=== PATIENT | male | born 1975 | race Caucasian/White ===

== ENCOUNTER → 2016-03-22 | Outpatient (REF) | payer BC ==
[~2016-03-22] MED LIST: ASPI1TAB PO; FOLI1TAB2 PO; MULT1TAB10 PO; OMEP20CA3 PO; vitamin B OR
== END | disposition home or self-care (01) ==
LOC: M SMT 08:30
PROVIDERS: ATTEND Urology
DX: Z30.2 Encounter for sterilization (principal)

== ENCOUNTER → 2016-05-20 | Outpatient (CLI) | payer BC ==
--- NOTE | 2016-05-23 06:18 | SLEEPCENT ---
DATE OF PROCEDURE: 05/20/2016 ORDERED BY: NATY Coles Nocturnal polysomnography was performed for the titration of pressure therapy in this patient with obstructive sleep apnea syndrome confirmed by home testing revealing a respiratory event index of 18. For testing, a [place] and APSX Simplus full face mask of small size was used. 4 cm of water pressure were applied to the circuit and the lights were extinguished. 8 hours and 29 minutes of data were reviewed. There were 453 minutes of sleep identified. Sleep latency was prolonged at 33 minutes. Rapid eye movement (REM) latency was normal at 82 minutes. Sleep architecture was good with 4 REM periods appreciated. Overall sleep efficiency was 90%. The patient's electrocardiogram (EKG) showed a sinus rhythm with an average heart rate of 60 beats per minute. Electroencephalogram (EEG) showed reasonably normal waveforms for awake and sleep. Best pressure for achievement of optimal sleep was 6 cm of continuous positive airway pressure (CPAP) with which the patient slept through REM without respiratory event and oxygen desaturation. Remaining measures of sleep physiology were normal. IMPRESSION: Obstructive sleep apnea syndrome (G47.33). RECOMMENDATION: Nightly use of pressure therapy 6 cm of water.
== END ==
LOC: M SLEEP 19:50
PROVIDERS: ATTEND Nurse Practitioner Adult Health
DX: G47.33 Obstructive sleep apnea (adult) (pediatric) (principal)

== ENCOUNTER 2018-12-23 15:45 | Outpatient (RCR) | payer BC ==
[~2018-12-23 15:45] MED LIST changes: -ASPI1TAB PO; +ASPI81TA26 PO; +FOLI1TAB11 PO; -FOLI1TAB2 PO; -OMEP20CA3 PO; +OMEP20CA4 PO
== END 2019-01-02 ==
LOC: M PT 15:45
PROVIDERS: ATTEND Otolaryngology
DX: M26.609 Unspecified temporomandibular joint disorder, unspecified side (principal)

== ENCOUNTER 2019-07-31 13:53 | Observation (INO) | payer BC ==
[~2019-07-31] VITALS: Ht 177.8 cm; Wt 166.3 kg
[~2019-07-31 13:53] MED LIST changes: +OMEP1CAP73 PO; -OMEP20CA4 PO
--- NOTE | 2019-07-31 14:34 | REP ---
Head CT without contrast: History: Neurologic symptoms. Comparison study: No comparison study. CT findings: Bone window settings demonstrate an intact bony calvarium. There is no evidence of skull fracture or incidental bony calvarial lesion. The visualized paranasal sinuses appear clear. No intraorbital abnormality is seen. On soft tissue window setting images; the lateral, third, and fourth ventricles are normal in size and position. Young-white differentiation pattern is normal above and below the tentorium. There are is no evidence of intracranial hemorrhage. No mass, edema, infarction, or midline shift is seen. No extra-axial fluid collection is appreciated. Impression: Negative noncontrast head CT. Electronically Signed by Kj Bunn MD 07/31/2019 02:24 P
[2019-07-31 15:30] LABS: BASO # 0.1 10^3/uL (0.0-0.2); EOS # 0.2 10^3/uL (0.0-0.5); EOS % 2.2 % (0.0-3.0); HEMATOCRIT 41.8 % (42.0-52.0); LYMPH # 1.9 10^3/uL (1.5-5.0); LYMPH % 27.1 % (24.0-44.0); MEAN CORPUSCULAR HEMOGLOBIN 24.6 pg (27.0-33.0); MEAN CORPUSCULAR HGB CONC 31.1 g/dl (32.0-36.5); MEAN CORPUSCULAR VOLUME 79.2 fl (80.0-96.0); MONO # 0.6 10^3/uL (0.0-0.8); NEUTROPHILS # 4.3 10^3/uL (1.5-8.5); PLATELET COUNT, AUTOMATED 329 10^3/uL (150-450); RED BLOOD COUNT 5.28 10^6/uL (4.30-6.10); WHITE BLOOD COUNT 7.1 10^3/uL (4.0-10.0)
[2019-07-31 15:33] LABS: INR 1.08; PROTHROMBIN TIME 13.7 SECONDS (11.8-14.0)
[2019-07-31 15:34] LABS: PARTIAL THROMBOPLASTIN TIME 35.4 SECONDS (25.0-38.4)
[2019-07-31 15:39] LABS: ALBUMIN 3.8 GM/DL (3.2-5.2); ALT/SGPT 20 U/L (12-78); BILIRUBIN,DIRECT 0.1 MG/DL (0.0-0.2); BILIRUBIN,TOTAL 0.4 MG/DL (0.2-1.0); CK-MB VALUE MASS < 1.0 NG/ML (<3.6); CPK CREATINE PHOSPHOKINASE 263 U/L (39-308); MB/CK RELATIVE INDEX 0.38 (< OR =4); TOTAL PROTEIN 7.1 GM/DL (6.4-8.2); TROPONIN I < 0.02 NG/ML (< 0.10)
[2019-07-31] MEDS ORDERED: IBUP200C29 PO (15:42)
[2019-07-31] MEDS ORDERED: OMEP1CAP73 PO (15:42)
--- NOTE | 2019-07-31 15:43 | REP ---
CHEST SINGLE VIEW: There is no evidence of acute infiltrate. No pleural effusion is seen. The heart is normal in size. The mediastinal silhouette is unremarkable. The visualized osseous structures are intact. IMPRESSION: No acute pulmonary disease. Electronically Signed by Clive Young MD 07/31/2019 05:06 P
[2019-07-31] MEDS ORDERED: ASPIRIN 325 MG TAB PO ONE (15:45)
[2019-07-31] MEDS ORDERED: ACETAMINOPHEN TAB 650MG DOSE (2X325MG) PO PRN (17:15)
--- NOTE | 2019-07-31 17:43 | HPEPDOC ---
[facility] Medical History & Physical Date of Admission July 31, 2019 Date of Service: July 31, 2019 Primary Care Physician: BLACK SCHAEFFER DO Attending Physician: LISA TORRES MD History and Physical CHIEF COMPLAINT: slurred speech and R-sided weakness HISTORY OF PRESENT ILLNESS: Charlie Mathews is a 44 YO M with history of hypertension, EUGENIO who presents with symptoms of slurred speech, upper extremity weakness that started 30 minutes prior to presentation to the ED. The patient reports waking up feeling fine this morning. He went to work and was on a conference call and his coworker noticed that he was having slurred speech. He then had another coworker friend who used to be an EMT do a neurologic exam on him, and his friend was concerned about upper extremity weakness. The patient did not notice any weakness prior to that. He was not having any trouble walking and had a friend drive him to the ED. The patient then reported to the ED and on presentation his speech was found to be normal. He does notice some residual numbness of his right cheek, but the weakness in his right upper extremity has resolved. He is unsure whether the sensation is intact in his right upper extremity compared to his left. He denies any recent illnesses. He has never had any strokes or TIAs, but does report a significant family history for GA in his father, younger brother, and grandfather resulting in at very young ages. In the ED, the patient underwent teleconsult with Dr. Mckeon for CVA evaluation. His CT head was found to be negative. The patient refused TPA. Of note, the patient does have a large bruise on his left upper extremity extending from his wrist to his elbow which he sustained playing golf. PAST MEDICAL HISTORY: 1. Hypertension, not on medications 2. GERD 3. Hx Kidney stones 4. EUGENIO (does not use CPAP) PAST SURGICAL HISTORY: 1. Gastric Sleeve, 2016 2. R arm surgery 3. Vasectomy SOCIAL HISTORY: Non-smoker, denies EtOH or other drugs FAMILY HISTORY: Grandfather had several MIs and passed at age of 58, Father at age of 56 from GA, Younger brother had GA at age of 30 No family history of strokes ALLERGIES: Please see below. REVIEW OF SYSTEMS: CONSTITUTIONAL: Denies weight loss, weight gain, fevers, chills, or night sweats EYES: Denies visual changes, double vision, blurry vision, floaters, or feeling like a curtain pulled down. ENT: Denies runny nose, epistaxis, sinus pain, tinnitus, sore throat, or odynophasia CARDIOVASCULAR: Denies chest pain, shortness of breath, paroxysmal nocturnal dyspnea, orthopnea, edema, or palpitations. RESPIRATORY: Denies cough, sputum production, wheezes, hemoptysis, or shortness of breath GASTROINTESTINAL: Denies abdominal pain, difficulty swallowing, loss of appetite GENITOURINARY: Denies hematuria, polyuria, dysuria, hesitancy, or dribbling MSK: Denies joint swelling, decreased range of motion, crepitus, or new arthritis INTEGUMENTARY: Denies pruritus, rashes, or lesions NEUROLOGY: Reports loss of sensation over right cheek PSYCHIATRIC: Denies depression, anxiety, paranoia, anhedonia, or episodes of ministerio ENDOCRINE: Denies diarrhea, increased appetite, tremor, palpitations, c onstipation, dry skin, polydipsia, polyuria, polyphagia HEMATOLOGIC: Denies any anemia, purpura, or petechiae LYMPHATIC: Denies any new lumps or bumps anywhere HOME MEDICATIONS: Please see below. PHYSICAL EXAMINATION: VITAL SIGNS: Please see below. GENERAL APPEARANCE: Morbidly obese, pleasant, Laying in bed, appears stated age, no acute distress, calm, cooperative HEENT: EOMI, PERRLA, neck is supple with no thyromegaly or lymphadenopathy RESPIRATORY: Lungs are clear to auscultation bilaterally with no adventitious breath sounds appreciated CARDIOVASCULAR: no JVD, RRR, no murmurs/rubs/gallops, normal S1 and S2 ABDOMEN: +BS, soft, nontender to palpation in all four quadrants, no masses/orga nomegaly EXTREMITIES: There is a large extensive bruise over the left upper extremity on the anterior surface extending from the wrist to the elbow NEUROLOGICAL: CN 2-12 intact, there is loss of sensation over the V2 distribution of the facial nerve on the right. Strength 5 out of 5 in bilateral upper and lower extremities. Reflexes are 3+. Sensation intact over both upper and lower extremities PSYCHIATRIC: normal mood/affect Skin: No rashes or ulcers appreciated, warm and well-perfused LN: No significant cervical or inguinal lymphadenopathy LABORATORY DATA: See below. IMAGING: CHEST SINGLE VIEW: There is no evidence of acute infiltrate. No pleural effusion is seen. The heart is normal in size. The mediastinal silhouette is unremarkable. The visualized osseous structures are intact. IMPRESSION: No acute pulmonary disease. HEAD CT: History: Neurologic symptoms. Comparison study: No comparison study. CT findings: Bone window settings demonstrate an intact bony calvarium. There is no evidence of skull fracture or incidental bony calvarial lesion. The visualized paranasal sinuses appear clear. No intraorbital abnormality is seen. On soft tissue window setting images; the lateral, third, and fourth ventricles are normal in size and position. Young-white differentiation pattern is normal above and below the tentorium. There are is no evidence of intracranial hemorrhage. No mass, edema, infarction, or midline shift is seen. No extra-axial fluid collection is appreciated. Impression: Negative noncontrast head CT. MICROBIOLOGY: Please see below. ASSESSMENT: This is a 44-year-old male with history of hypertension, EUGENIO, obesity who presented with right-sided paresthesias and speech difficulty, found to have normal head CT, concerning for acute TIA versus CVA. He will be admitted for further workup at this time. PLAN: 1. TIA: -All labs WNL -Head CT negative for hemorrhage -Echo with bubble study pending -MRI/MRA ordered -ASA 325mg given in ED -Atorvastatin 40mg daily -Lipids, A1c pending -Remote telemetry 2. Left upper extremity swelling: -Doppler US to r/o DVT 3. Anemia: -Iron studies pending 4. HTN: 171/88 -Will recheck and start Losartan if needed PT evaluation ordered DVT ppx: Heparin Attending attestation: I evaluated and examined the patient in person; I discussed the care with Resident in detail and agree with the plan above. Vital Signs Vital Signs Date Time Temp Pulse Resp B/P (MAP) Pulse Ox O2 Delivery O2 Flow Rate FiO2 07/31/19 15:53 75 18 96 07/31/19 15:50 171/88 (115) 07/31/19 13:53 97.7 Room Air Laboratory Data Labs 24H Laboratory Tests 2 07/31/19 14:09: Bedside Glucose (Misc Panel) 80 07/31/19 14:35: Immature Granulocyte % (Auto) 0.7, Neutrophils (%) (Auto) 60.0, Lymphocytes (%) (Auto) 27.1, Monocytes (%) (Auto) 9.0H, Eosinophils (%) (Auto) 2.2, Basophils (%) (Auto) 1.0, Neutrophils # (Auto) 4.3, Lymphocytes # (Auto) 1.9, Monocytes # (Auto) 0.6, Eosinophils # (Auto) 0.2, Basophils # (Auto) 0.1, Nucleated Red Blood Cells % (auto) 0.0, Prothrombin Time 13.7, Prothromb Time International Ratio 1.08, Activated Partial Thromboplast Time 35.4, Total Bilirubin 0.4, Direct Bilirubin 0.1, Aspartate Amino Transf (AST/SGOT) 11, Alanine Aminotransferase (ALT/SGPT) 20, Alkaline Phosphatase 111, Total Creatine Kinase 263, Creatine Kinase MB < 1.0, Creatine Kinase MB Relative Index 0.38, Troponin I < 0.02, Total Protein 7.1, Albumin 3.8, Albumin/Globulin Ratio 1.2 07/31/19 14:58: POC Glucose (Misc Panel) 93, POC Sodium (Misc Panel) 141, POC Potassium (Misc Panel) 3.9, POC Chloride (Misc Panel) 103, POC Total CO2 (Misc Panel) 25.0, POC Blood Urea Nitrogen (Misc Panel 12, POC Ionized Calcium (Misc Panel) 4.9, POC Creatinine (Misc Panel) 1.1, POC Hematocrit (Misc Panel) 41.0 CBC/BMP Laboratory Tests 07/31/19 14:35 Home Medications Scheduled Aspirin (Ecotrin) 81 Mg Tablet.dr, 1 TAB PO DAILY for pain Omeprazole (Omeprazole) 20 Mg Cap, 20 MG PO DAILY Scheduled PRN Ibuprofen (Ibuprofen) 200 Mg Capsule, 800 MG PO TID PRN for PAIN Omeprazole (Omeprazole) 20 Mg Capsule.dr, 20 MG PO DAILY PRN for HEARTBURN Allergies Coded Allergies: No Known Allergies (Unverified , 02/08/16) A-FIB/CHADSVASC A-FIB History Current/History of A-Fib/PAF?: No Current PO Anticoag Therapy: No GME ATTESTATION GME ATTESTATION My faculty preceptor for this patient encounter was physically present during the encounter and was fully available. All aspects of the patient interview, examination, medical decision making process, and medical care plan development were reviewed and approved by the faculty preceptor. The faculty preceptor is aware and concurs with the plan as stated in the body of this note and will attest to such by his/her cosignature. REI MOREAU MD July 31, 2019 17:43 LISA TORRES MD Aug 06, 2019 20:54
[2019-07-31 18:33] LABS: INR 1.14; PROTHROMBIN TIME 14.3 SECONDS (11.8-14.0)
[2019-07-31 18:36] LABS: HEMOGLOBIN A1c 5.9 %
[2019-07-31 18:49] LABS: CHOLESTEROL RISK RATIO 3.976 (<5); PERCENT SATURATION 10.2 % (19.7-50.0)
--- NOTE | 2019-07-31 21:03 | REPVR ---
PROCEDURE INFORMATION: Exam: MR Angiography Neck Without Contrast Exam date and time: 07/31/2019 8:55 PM Age: 44 years old Clinical indication: Other: TIA; Additional info: CVA TECHNIQUE: Imaging protocol: Magnetic resonance angiography of the neck without contrast. 3D rendering: MIP and/or 3D reconstructed images were created by the technologist. COMPARISON: No relevant prior studies available. FINDINGS: Right common carotid artery: No stenosis. No dissection or occlusion. Right internal carotid artery: No stenosis of the extracranial segment. No dissection or occlusion. Right external carotid artery: No stenosis. No dissection or occlusion of the origin. Right vertebral artery: Vertebral artery above the C1 level is not visualized. Left common carotid artery: No stenosis. No dissection or occlusion. Left internal carotid artery: No stenosis of the extracranial segment. No dissection or occlusion. Left external carotid artery: No stenosis. No dissection or occlusion of the origin. Left vertebral artery: Left vertebral artery is small. The proximal left vertebral artery is patent. IMPRESSION: 1. Left vertebral artery is hypoplastic. The V3 and V4 segments are not visualized. 2. Otherwise unremarkable MRA. No other significant stenosis, aneurysm, or vascular occlusion. REFERENCES: NASCET CRITERIA. The degree of internal carotid artery stenosis is based on NASCET criteria. Normal is no stenosis. Mild is less than 50% stenosis. Moderate is 50-69% stenosis. Severe is 70% to 99% stenosis. Total occlusion is no detectable patent lumen. Electronically signed by: Osman Davison On 07/31/2019 21:03:42 PM
--- NOTE | 2019-07-31 21:07 | REPVR ---
PROCEDURE INFORMATION: Exam: MR Angiogram Head Without Contrast, Arteries Exam date and time: 07/31/2019 8:55 PM Age: 44 years old Clinical indication: Other: TIA; Additional info: CVA TECHNIQUE: Imaging protocol: MR angiogram head without contrast. Exam focused on the arteries. 3D rendering: MIP and/or 3D reconstructed images were created by the technologist. COMPARISON: CT Head without contrast 07/31/2019 2:09 PM FINDINGS: Anterior cerebral arteries: Intracranial segment is patent with no significant stenosis. No aneurysm. Right internal carotid artery: Intracranial segment is patent with no significant stenosis. No aneurysm. Right middle cerebral artery: No occlusion or significant stenosis. No aneurysm. Right posterior cerebral artery: No occlusion or significant stenosis. No aneurysm. Right vertebral artery: No occlusion or significant stenosis. No aneurysm. Left internal carotid artery: Intracranial segment is patent with no significant stenosis. No aneurysm. Left middle cerebral artery: The proximal left V4 segment is not well visualized. Left posterior cerebral artery: Flow is present in the distal left V4 segment. Left vertebral artery: No occlusion or significant stenosis. No aneurysm. Basilar artery: No occlusion or significant stenosis. No aneurysm. IMPRESSION: 1. No flow in the hypoplastic proximal left vertebral artery. Some flow is present distally. 2. Otherwise unremarkable MRA. No other significant stenosis, aneurysm, or vascular occlusion. Electronically signed by: Osman Davison On 07/31/2019 21:07:12 PM
--- NOTE | 2019-07-31 21:10 | REPVR ---
PROCEDURE INFORMATION: Exam: MR Head Without Contrast Exam date and time: 07/31/2019 8:55 PM Age: 44 years old Clinical indication: Other: TIA; Additional info: CVA TECHNIQUE: Imaging protocol: MR of the head without contrast. COMPARISON: CT Head without contrast 07/31/2019 2:09 PM FINDINGS: Brain: Normal. No acute infarct. No hemorrhage. No significant white matter disease. No edema. Ventricles: Normal. No ventriculomegaly. Bones/joints: Unremarkable. Sinuses: Normal as visualized. No acute sinusitis. Mastoid air cells: Normal as visualized. No mastoid effusion. Orbits: Unremarkable. Soft tissues: Unremarkable. IMPRESSION: No acute findings. Electronically signed by: Osman Davison On 07/31/2019 21:10:03 PM
--- NOTE | 2019-07-31 21:11 | ECGEPIP ---
[facility] - ED Test Date: 2019-07-31 Pat Name: CHRIS BOURNE Department: Room: - Gender: Male Quality Coordinator: : 1975 Requested By: SILVERIO Durant Order Number: [id number] Reading MD: Bryn Stratton Measurements Intervals [place] Rate: 67 P: 1 OR: 144 QRS: 11 QRSD: 101 T: 12 QT: 399 QTc: 424 Interpretive Statements SINUS RHYTHM POSSIBLE INFERIOR MYOCARDIAL INFARCTION, PROBABLY OLD NO PRIORS FOR COMPARISON Electronically Signed on 07-31-2019 21:11:24 EDT by Bryn Stratton
--- NOTE | 2019-07-31 21:15 | REPVR ---
PROCEDURE INFORMATION: Exam: US Duplex Left Upper Extremity Veins, Limited Exam date and time: 07/31/2019 9:01 PM Age: 44 years old Clinical indication: Pain; Arm, lower; Left; Additional info: R/O dvt TECHNIQUE: Imaging protocol: Real-time Duplex ultrasound of the Left Upper Extremity with 2-D moraes scale, color Doppler flow and spectral waveform analysis with image documentation. Limited exam focused on the left upper extremity veins. COMPARISON: No relevant prior studies available. FINDINGS: Left deep veins: Unremarkable. Axillary and brachial veins are patent throughout without thrombus. Normal Doppler waveforms. Normal compressibility and/or augmentation response. Visualized internal jugular and subclavian veins are patent. Left superficial veins: Unremarkable. Visualized cephalic and basilic veins are patent without thrombus. Soft tissues: Unremarkable. IMPRESSION: No evidence of deep vein thrombosis. Electronically signed by: Osman Davison On 07/31/2019 21:15:05 PM
[2019-07-31 22:00] VITALS: BP 141/87
[2019-07-31] MEDS: HEPARIN SOD (PORCINE) 5000UNITS/ML VIAL (J1644 PER 1000UNITS) SC SCH (22:25)
[2019-08-01 05:47] LABS: HEMATOCRIT 40.8 % (42.0-52.0); HEMOGLOBIN 12.6 g/dl (13.5-17.5); MEAN CORPUSCULAR HEMOGLOBIN 24.3 pg (27.0-33.0); MEAN CORPUSCULAR HGB CONC 30.9 g/dl (32.0-36.5); MEAN CORPUSCULAR VOLUME 78.6 fl (80.0-96.0); PLATELET COUNT, AUTOMATED 297 10^3/uL (150-450); RED BLOOD COUNT 5.19 10^6/uL (4.30-6.10); WHITE BLOOD COUNT 6.3 10^3/uL (4.0-10.0)
[2019-08-01 06:00] VITALS: BP 121/87
[2019-08-01 06:09] LABS: BLOOD UREA NITROGEN 11 MG/DL (7-18); CALCIUM LEVEL 8.3 MG/DL (8.5-10.1); CARBON DIOXIDE LEVEL 27 MEQ/L (21-32); CHLORIDE LEVEL 108 MEQ/L (98-107); GLOMERULAR FILTRATION RATE > 60.0 (>60); GLUCOSE, FASTING 94 MG/DL (70-100); POTASSIUM SERUM 4.4 MEQ/L (3.5-5.1); SODIUM LEVEL 143 MEQ/L (136-145)
[2019-08-01] MEDS ORDERED: OMEPRAZOLE 20 MG CAP PO SCH (09:00)
[2019-08-01] MEDS ORDERED: ATORVASTATIN 20 MG TAB PO SCH (09:00)
[2019-08-01] MEDS ORDERED: ASPIRIN 325 MG TAB PO SCH (09:00)
[2019-08-01] MEDS ORDERED: ASPIRIN 81 MG CHEW TABLET PO SCH (09:00)
[2019-08-01] MEDS: HEPARIN SOD (PORCINE) 5000UNITS/ML VIAL (J1644 PER 1000UNITS) SC SCH (09:07)
[2019-08-01] MEDS ORDERED: ECOT81TA5 PO (10:06)
--- NOTE | 2019-08-01 13:21 | ECHO ---
DATE OF STUDY: 08/01/2019 REFERRING PHYSICIAN: Dr. Tami Clemente INDICATION: Acute stroke. HEIGHT: 178 cm. WEIGHT: 170 kg. 2-D MEASUREMENTS: Left atrium: 4.3 cm Aortic root: 3.9 cm Ventricular septum: 1.29 cm Posterior wall: 0.96 cm Left ventricle diastole: 5.4 cm Aortic annulus: 2.4 cm Inferior vena cava: 1.6 cm DOPPLER MEASUREMENTS: Aortic valve velocity: 116 cm/sec LVOT velocity: 98.6 cm/sec No aortic stenosis No aortic regurgitation No mitral stenosis No mitral regurgitation Mitral E velocity: 85.5 cm/sec Mitral A velocity: 75.4 cm/sec Mitral deceleration time: 137 ms Very mild tricuspid regurgitation No pulmonic regurgitation Pulmonary acceleration time: 98 ms MITRAL ANNULAR TISSUE DOPPLER: E prime septal: 8.3 cm/sec DESCRIPTION: The rhythm was sinus. Image quality was moderately technically difficult. This was a 2-D, M-mode, color flow Doppler and pulse wave Doppler examination and included mitral annular tissue Doppler. CONCLUSIONS: 1. Mild focal hypertrophy of the basal anterior ventricular septum. Normal regional LV wall motion and wall thickening. Normal LV systolic function. LVEF 60% by visual estimate. Normal LV diastolic function. 2. Mild left atrial dilatation. 3. Mild dilatation of the aortic root at the level of the sinus of Valsalva (3.9 cm). 4. Suggestive of mild elevation of pulmonary artery systolic pressure. 5. Saline bubble contrast study was performed on the study. The opacification of the right atrium was suboptimal and therefore this bubble study was not reliable for exclusion of patent foramen ovale or PFO. If clinically important to further evaluate for presence of PFO or atrial septal defect, then consider transesophageal echocardiogram with saline bubble study.
--- NOTE | 2019-08-02 09:24 | DS.PDOC ---
Discharge Summary General Date of Admission July 31, 2019 at 13:54 Date of Discharge August 01, 2019 Primary Care Physician: BLACK SCHAEFFER DO Attending Physician: LISA TORRES MD Discharge Summary PROCEDURES PERFORMED DURING STAY: [None]. ADMITTING DIAGNOSES: 1. TIA DISCHARGE DIAGNOSES: 1. TIA COMPLICATIONS/CHIEF COMPLAINT: TIA. HISTORY OF PRESENT ILLNESS: Charlie Mathews is a 44 YO M with history of hypertension, EUGENIO who presents with symptoms of slurred speech, upper extremity weakness that started 30 minutes prior to presentation to the ED. The patient reports waking up feeling fine this morning. He went to work and was on a conference call and his coworker noticed that he was having slurred speech. He then had another coworker friend who used to be an EMT do a neurologic exam on him, and his friend was concerned about upper extremity weakness. The patient did not notice any weakness prior to that. He was not having any trouble walking and had a friend drive him to the ED. The patient then reported to the ED and on presentation his speech was found to be normal. He does notice some residual numbness of his right cheek, but the weakness in his right upper extremity has resolved. He is unsure whether the sensation is intact in his right upper extremity compared to his left. He denies any recent illnesses. He has never had any strokes or TIAs, but does report a significant family history for KS in his father, younger brother, and grandfather resulting in at very young ages. HOSPITAL COURSE: The patient was admitted after acute TIA. Symptoms mostly resolved on admission except for numbness on R cheek. 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 Otherwise, the patient was advised to follow up with Neurology outpatient and continue taking 81mg Aspirin daily. He was discharged home in stable state. DISCHARGE MEDICATIONS: Please see below. ALLERGIES: Please see below. PHYSICAL EXAMINATION ON DISCHARGE: VITAL SIGNS: Please see below. GENERAL APPEARANCE: Morbidly obese, pleasant, Laying in bed, appears stated age, no acute distress, calm, cooperative HEENT: EOMI, PERRLA, neck is supple with no thyromegaly or lymphadenopathy RESPIRATORY: Lungs are clear to auscultation bilaterally with no adventitious breath sounds appreciated CARDIOVASCULAR: no JVD, RRR, no murmurs/rubs/gallops, normal S1 and S2 ABDOMEN: +BS, soft, nontender to palpation in all four quadrants, no masses/organomegaly EXTREMITIES: There is a large extensive bruise over the left upper extremity on the anterior surface extending from the wrist to the elbow NEUROLOGICAL: CN 2-12 intact, there is loss of sensation over the V2 distribution of the facial nerve on the right. Strength 5 out of 5 in bilateral upper and lower extremities. Reflexes are 3+. Sensation intact over both upper and lower extremities PSYCHIATRIC: normal mood/affect Skin: No rashes or ulcers appreciated, warm and well-perfused LN: No significant cervical or inguinal lymphadenopathy LABORATORY DATA: Please see below. IMAGING: ECHO: CONCLUSIONS: 1. Mild focal hypertrophy of the basal anterior ventricular septum. Normal regional LV wall motion and wall thickening. Normal LV systolic function. LVEF 60% by visual estimate. Normal LV diastolic function. 2. Mild left atrial dilatation. 3. Mild dilatation of the aortic root at the level of the sinus of Valsalva (3.9 cm). 4. Suggestive of mild elevation of pulmonary artery systolic pressure. 5. Saline bubble contrast study was performed on the study. The opacification of the right atrium was suboptimal and therefore this bubble study was not reliable for exclusion of patent foramen ovale or PFO. If clinically important to further evaluate for presence of PFO or atrial septal defect, then consider transesophageal echocardiogram with saline bubble study. PROGNOSIS: Fair ACTIVITY: [As tolerated]. DIET: as tolerated DISCHARGE PLAN: home DISPOSITION: . DISCHARGE INSTRUCTIONS: 1. Follow up with Neurology within 7 days ITEMS TO FOLLOWUP ON ON OUTPATIENT: 1. none DISCHARGE CONDITION: [Stable]. TIME SPENT ON DISCHARGE: Greater than 40 minutes. Attending attestation: I evaluated and examined the patient in person; I discussed the care with Resident in detail and agree with the plan above. Vital Signs/I&Os Vital Signs Date Time Temp Pulse Resp B/P (MAP) Pulse Ox O2 Delivery O2 Flow Rate FiO2 08/01/19 06:00 96.9 57 18 121/87 (98) 95 Room Air I&O- Last 24 Hours up to 6 AM 08/01/19 06:00 Intake Total 200 ml Balance 200 ml Laboratory Data Labs 24H Laboratory Tests 2 07/31/19 14:09: Bedside Glucose (Misc Panel) 80 07/31/19 14:35: Immature Granulocyte % (Auto) 0.7, Neutrophils (%) (Auto) 60.0, Lymphocytes (%) (Auto) 27.1, Monocytes (%) (Auto) 9.0H, Eosinophils (%) (Auto) 2.2, Basophils (%) (Auto) 1.0, Neutrophils # (Auto) 4.3, Lymphocytes # (Auto) 1.9, Monocytes # (Auto) 0.6, Eosinophils # (Auto) 0.2, Basophils # (Auto) 0.1, Nucleated Red Blood Cells % (auto) 0.0, Prothrombin Time 13.7, Prothromb Time International Ratio 1.08, Activated Partial Thromboplast Time 35.4, Total Bilirubin 0.4, Direct Bilirubin 0.1, Aspartate Amino Transf (AST/SGOT) 11, Alanine Aminotransferase (ALT/SGPT) 20, Alkaline Phosphatase 111, Total Creatine Kinase 263, Creatine Kinase MB < 1.0, Creatine Kinase MB Relative Index 0.38, Troponin I < 0.02, Total Protein 7.1, Albumin 3.8, Albumin/Globulin Ratio 1.2 07/31/19 14:58: POC Glucose (Misc Panel) 93, POC Sodium (Misc Panel) 141, POC Potassium (Misc Panel) 3.9, POC Chloride (Misc Panel) 103, POC Total CO2 (Misc Panel) 25.0, POC Blood Urea Nitrogen (Misc Panel 12, POC Ionized Calcium (Misc Panel) 4.9, POC Creatinine (Misc Panel) 1.1, POC Hematocrit (Misc Panel) 41.0 07/31/19 18:11: Prothrombin Time 14.3H, Prothromb Time International Ratio 1.14, Estimated Mean Plasma Glucose 123H, Hemoglobin A1c 5.9, Magnesium Level 2.0, Iron Level 37L, Total Iron Binding Capacity 362, Transferrin % Saturation 10.2L, Ferritin 26, Triglycerides Level 97, Total Cholesterol 167, LDL Cholesterol 106H, Non-HDL Cholesterol (LDL + VLDL) 125, Total HDL Cholesterol 42, Cholesterol/HDL Ratio 3.976 08/01/19 05:19: Nucleated Red Blood Cells % (auto) 0.0, Anion Gap 8, Glomerular Filtration Rate > 60.0, Calcium Level 8.3L, Magnesium Level 2.0 CBC/BMP Laboratory Tests 07/31/19 14:35 08/01/19 05:19 FSBS Laboratory Tests Test 5/28/20 14:09 Range/Units Bedside Glucose (Misc Panel) 80 70-105 MG/DL Discharge Medications Scheduled Aspirin (Ecotrin) 81 Mg Tablet.dr, 1 TAB PO DAILY for pain Omeprazole (Omeprazole) 20 Mg Cap, 20 MG PO DAILY, (Reported) Scheduled PRN Ibuprofen (Ibuprofen) 200 Mg Capsule, 800 MG PO TID PRN for PAIN, (Reported) Omeprazole (Omeprazole) 20 Mg Capsule.dr, 20 MG PO DAILY PRN for HEARTBURN, (Reported) Allergies Coded Allergies: No Known Allergies (Unverified , 02/08/16) GME ATTESTATION GME ATTESTATION My faculty preceptor for this patient encounter was physically present during the encounter and was fully available. All aspects of the patient interview, examination, medical decision making process, and medical care plan development were reviewed and approved by the faculty preceptor. The faculty preceptor is aware and concurs with the plan as stated in the body of this note and will attest to such by his/her cosignature. REI MOREAU MD August 01, 2019 12:01 LISA TORRES MD Aug 06, 2019 22:27
== END 2019-08-01 13:12 | disposition home or self-care (01) ==
LOC: M ED 13:53 → M ED INP 13:54 → ENRESERVTM 18:13 → CANRESERV 18:13 → ENRESERV 18:14 → M MSPAV 21:08
PROVIDERS: ADMIT Internal Medicine; ATTEND Internal Medicine
DX: G45.9 Transient cerebral ischemic attack, unspecified (principal); I10 Essential (primary) hypertension; R22.32 Localized swelling, mass and lump, left upper limb; D64.9 Anemia, unspecified; G47.33 Obstructive sleep apnea (adult) (pediatric); K21.9 Gastro-esophageal reflux disease without esophagitis; Z79.82 Long term (current) use of aspirin; Z79.899 Other long term (current) drug therapy; Z98.84 Bariatric surgery status
CPT/HCPCS: 36415; 70450; 70544; 70547; 70551; 71045; 80047; 80048; 80061; 80076; 82550; 82553; 82728; 83036; 83550; 83735; 84484; 85025; 85027; 85610; 85730; 86850; 86900; 86901; 93005; 93041; 93306; 93971; 94760; 96372; 97161; 99285; J1644

== ENCOUNTER 2020-07-05 19:45 | Emergency (ER) | payer BC ==
[~2020-07-05] VITALS: Ht 177.8 cm; Wt 367.0 kg
[~2020-07-05 19:45] MED LIST changes: +ECOT81TA5 PO; +IBUP200C29 PO
[2020-07-05 19:46] VITALS: BP 143/93
--- NOTE | 2020-07-05 21:22 | REPVR ---
PROCEDURE INFORMATION: Exam: XR Left Foot Exam date and time: 07/05/2020 8:22 PM Age: 45 years old Clinical indication: Pain; Foot; Left; Additional info: Injury TECHNIQUE: Imaging protocol: XR Left foot. Views: 3 or more views. COMPARISON: No relevant prior studies available. FINDINGS: Bones/joints: There is an acute nondisplaced transverse fracture involving the base of the left 5th metatarsal (Elder fracture). No other fractures are seen. The Lisfranc alignment is maintained. There is dorsal spurring from the left tarsal navicular at the naviculocuneiform joint. There is soft tissue swelling adjacent to the base of the left 5th metatarsal. There is a posterior calcaneal spur at the insertion of the Achilles tendon, which is compatible with a left Achilles enthesopathy. Incidental note is made of a well corticated accessory ossicle lateral to the cuboid, which represents an os peroneum. Soft tissues: There is a plantar calcaneal spur at the origin of the left plantar fascia. IMPRESSION: Acute nondisplaced transverse fracture involving the base of the left 5th metatarsal (Elder fracture). Electronically signed by: Nazario Padron On 07/05/2020 21:21:47 PM
== END 2020-07-06 00:54 | disposition home or self-care (01) ==
LOC: M ED 19:45
DX: S92.355A Nondisplaced fracture of fifth metatarsal bone, left foot, initial encounter for closed fracture (principal); X58.XXXA Exposure to other specified factors, initial encounter; Y92.89 Other specified places as the place of occurrence of the external cause; K21.9 Gastro-esophageal reflux disease without esophagitis; Z79.899 Other long term (current) drug therapy

== ENCOUNTER → 2020-10-07 | Outpatient (CLI) | payer BC ==
--- NOTE | 2020-10-07 15:45 | REP ---
INDICATION: FRACTURE OF FIFTH METATARSAL BONE, LEFT FOOT PAIN. COMPARISON: 07/05/2020 which showed a fracture involving the base of the 5th metatarsal TECHNIQUE: Four views FINDINGS: The 5th metatarsal fracture is healing. The margins are indistinct. Plantar and retrocalcaneal heel spurs are again noted status quo. There are plantar soft tissue calcifications status quo. IMPRESSION: Healing 5th metatarsal fracture as described above. Follow-up is suggested. <Electronically signed by Luan Lindo > 10/07/20 [id number]
== END ==
LOC: M WUC 14:46
PROVIDERS: ATTEND Orthopaedic Surgery
DX: S92.353D Displaced fracture of fifth metatarsal bone, unspecified foot, subsequent encounter for fracture with routine healing (principal); X58.XXXA Exposure to other specified factors, initial encounter; Y92.9 Unspecified place or not applicable; Y93.9 Activity, unspecified; Y99.9 Unspecified external cause status

== ENCOUNTER 2020-12-05 13:50 | Emergency (ER) | payer BC ==
[~2020-12-05] VITALS: Ht 175.3 cm; Wt 135.9 kg
[2020-12-05] MEDS ORDERED: HYDR-3713 (14:12)
[2020-12-05 14:57] LABS: BASO % 0.5 % (0.0-1.0); EOS # 0.3 10^3/uL (0.0-0.5); EOS % 3.5 % (0.0-3.0); LYMPH # 2.2 10^3/uL (1.5-5.0); LYMPH % 27.5 % (24.0-44.0); MEAN CORPUSCULAR HEMOGLOBIN 25.1 pg (27.0-33.0); MEAN CORPUSCULAR HGB CONC 31.9 g/dl (32.0-36.5); MEAN CORPUSCULAR VOLUME 78.6 fl (80.0-96.0); MONO # 0.5 10^3/uL (0.0-0.8); NEUTROPHILS % 61.6 % (36.0-66.0); PLATELET COUNT, AUTOMATED 298 10^3/uL (150-450); RED BLOOD COUNT 5.98 10^6/uL (4.30-6.10); WHITE BLOOD COUNT 8.1 10^3/uL (4.0-10.0)
--- NOTE | 2020-12-05 15:19 | REP ---
INDICATION: recent ortho surgry, pain ro clot. COMPARISON: None. TECHNIQUE: Left {lower extremity duplex venous scanning is performed from the groin to the ankle level. FINDINGS: The deep veins are anechoic and fully compressible from the groin to the popliteal fossa in the left lower extremity. Color flow imaging is homogeneous. Spectral Doppler interrogation demonstrates intact respiratory variation in flow and normal manual augmentation of flow. There is no evidence of deep vein thrombosis above the knee. The left lower extremity calf veins are not well visualized due to patient body habitus. Scanning in the area of the palpable lump in the calf demonstrates a complex heterogeneous hypoechoic area this is elongate measuring 8.3 x 3.1 x 2.0 cm. And appears to be intramuscular. Doppler interrogation of the contralateral common femoral vein shows normal symmetric respiratory phasicity. IMPRESSION: No evidence of DVT in the left lower extremity femoropopliteal veins. No DVT in the visible portions of the calf veins. There is a hypoechoic area in the calf measuring 8.3 x 3.1 x 2.0 cm compatible with intramuscular hematoma or other lesion. Follow-up is advised. <Electronically signed by Israel Bunn > 12/05/20 [id number]
[2020-12-05] MEDS ORDERED: METAL LOCK LOOP XX ONE (15:21)
[2020-12-05 15:25] LABS: BLOOD UREA NITROGEN 8 MG/DL (7-18); CALCIUM LEVEL 9.3 MG/DL (8.5-10.1); CARBON DIOXIDE LEVEL 29 MEQ/L (21-32); CHLORIDE LEVEL 106 MEQ/L (98-107); CREATININE FOR GFR 0.96 MG/DL (0.70-1.30); GLOMERULAR FILTRATION RATE > 60.0 (>60); GLUCOSE, FASTING 92 MG/DL (70-100); POTASSIUM SERUM 4.3 MEQ/L (3.5-5.1); SODIUM LEVEL 140 MEQ/L (136-145)
[2020-12-05 15:45] VITALS: BP 127/83
== END 2020-12-05 15:48 | disposition home or self-care (01) ==
LOC: M ED 13:50
DX: M79.81 Nontraumatic hematoma of soft tissue (principal); I10 Essential (primary) hypertension; K21.9 Gastro-esophageal reflux disease without esophagitis; G47.33 Obstructive sleep apnea (adult) (pediatric); Z79.899 Other long term (current) drug therapy; Z86.73 Personal history of transient ischemic attack (TIA), and cerebral infarction without residual deficits; Z87.442 Personal history of urinary calculi; Z98.84 Bariatric surgery status

== ENCOUNTER → 2021-02-24 | Outpatient (CLI) | payer BC ==
[~2021-02-24] MED LIST changes: +HYDR-3713
[2021-02-24 12:15] LABS: BASO # 0.1 10^3/uL (0.0-0.2); BASO % 0.7 % (0.0-1.0); EOS # 0.2 10^3/uL (0.0-0.5); EOS % 2.2 % (0.0-3.0); HEMATOCRIT 45.1 % (42.0-52.0); HEMOGLOBIN 14.4 g/dl (13.5-17.5); LYMPH % 25.6 % (24.0-44.0); MEAN CORPUSCULAR HEMOGLOBIN 26.9 pg (27.0-33.0); MEAN CORPUSCULAR HGB CONC 31.9 g/dl (32.0-36.5); MEAN CORPUSCULAR VOLUME 84.1 fl (80.0-96.0); MONO # 0.5 10^3/uL (0.0-0.8); NEUTROPHILS # 4.9 10^3/uL (1.5-8.5); PLATELET COUNT, AUTOMATED 290 10^3/uL (150-450); RED BLOOD COUNT 5.36 10^6/uL (4.30-6.10); WHITE BLOOD COUNT 7.7 10^3/uL (4.0-10.0)
[2021-02-24 12:43] LABS: ALBUMIN 4.1 GM/DL (3.2-5.2); ALT/SGPT 21 U/L (12-78); BILIRUBIN,TOTAL 0.4 MG/DL (0.2-1.0); BLOOD UREA NITROGEN 9 MG/DL (7-18); CALCIUM LEVEL 9.1 MG/DL (8.5-10.1); CARBON DIOXIDE LEVEL 31 MEQ/L (21-32); CHLORIDE LEVEL 104 MEQ/L (98-107); CREATININE FOR GFR 0.95 MG/DL (0.70-1.30); FERRITIN 97 NG/ML (26-388); GLOMERULAR FILTRATION RATE > 60.0 (>60); GLUCOSE, FASTING 87 MG/DL (70-100); IRON (FE) 37 UG/DL (65-175); PERCENT SATURATION 12.2 % (19.7-50.0); PHOSPHORUS LEVEL 3.6 MG/DL (2.5-4.9); POTASSIUM SERUM 4.1 MEQ/L (3.5-5.1); SODIUM LEVEL 140 MEQ/L (136-145); TOTAL IRON BINDING CAPACITY 303 UG/DL (250-450); TOTAL PROTEIN 7.2 GM/DL (6.4-8.2)
[2021-02-24 12:52] LABS: TOTAL 25(OH) VITAMIN D 58.3 NG/ML (30.0-100.0); VITAMIN B12 LEVEL 1401 PG/ML (247-911)
== END ==
LOC: M LAB 11:34
PROVIDERS: ATTEND Surgery
DX: K91.2 Postsurgical malabsorption, not elsewhere classified (principal)

== ENCOUNTER → 2021-09-22 | Outpatient (CLI) | payer BC ==
[2021-09-22 15:19] LABS: CHOLESTEROL RISK RATIO 3.604 (<5); FREE T4 0.9 NG/DL (0.76-1.46); THYROID STIMULATING HORMONE 2.45 uIU/ML (0.358-3.740)
== END ==
LOC: M LAB 13:36
PROVIDERS: ATTEND Family Medicine
DX: Z13.220 Encounter for screening for lipoid disorders (principal); Z13.29 Encounter for screening for other suspected endocrine disorder

== ENCOUNTER → 2021-09-22 | Outpatient (CLI) | payer BC | LOC: M RAD 13:34 | PROVIDERS: ATTEND Physician Assistant | DX: N50.82 Scrotal pain (principal) ==

== ENCOUNTER → 2021-09-22 | Outpatient (CLI) | payer BC ==
[2021-09-22 14:28] LABS: BASO # 0.1 10^3/uL (0.0-0.2); BASO % 0.8 % (0.0-1.0); EOS # 0.2 10^3/uL (0.0-0.5); HEMATOCRIT 43.9 % (42.0-52.0); HEMOGLOBIN 14.2 g/dl (13.5-17.5); LYMPH # 1.7 10^3/uL (1.5-5.0); LYMPH % 28.4 % (24.0-44.0); MEAN CORPUSCULAR HEMOGLOBIN 27.6 pg (27.0-33.0); MEAN CORPUSCULAR HGB CONC 32.3 g/dl (32.0-36.5); MEAN CORPUSCULAR VOLUME 85.4 fl (80.0-96.0); MONO # 0.5 10^3/uL (0.0-0.8); MONO % 7.4 % (2.0-8.0); NEUTROPHILS # 3.7 10^3/uL (1.5-8.5); NEUTROPHILS % 59.9 % (36.0-66.0); PLATELET COUNT, AUTOMATED 287 10^3/uL (150-450); RED BLOOD COUNT 5.14 10^6/uL (4.30-6.10); WHITE BLOOD COUNT 6.1 10^3/uL (4.0-10.0)
[2021-09-22 14:51] LABS: HEMOGLOBIN A1c 5.3 %
[2021-09-22 15:11] LABS: ALBUMIN 3.9 GM/DL (3.2-5.2); ALT/SGPT 22 U/L (12-78); BILIRUBIN,TOTAL 0.4 MG/DL (0.2-1.0); BLOOD UREA NITROGEN 12 MG/DL (7-18); CALCIUM LEVEL 9.4 MG/DL (8.5-10.1); CARBON DIOXIDE LEVEL 29 MEQ/L (21-32); CHLORIDE LEVEL 108 MEQ/L (98-107); CREATININE FOR GFR 1.04 MG/DL (0.70-1.30); FERRITIN 273 NG/ML (26-388); GLOMERULAR FILTRATION RATE > 60.0 (>60); GLUCOSE, FASTING 110 MG/DL (70-100); IRON (FE) 57 UG/DL (65-175); MAGNESIUM LEVEL 1.7 MG/DL (1.8-2.4); PERCENT SATURATION 20.7 % (19.7-50.0); PHOSPHORUS LEVEL 3.3 MG/DL (2.5-4.9); POTASSIUM SERUM 4.1 MEQ/L (3.5-5.1); SODIUM LEVEL 142 MEQ/L (136-145); TOTAL IRON BINDING CAPACITY 276 UG/DL (250-450); TOTAL PROTEIN 6.9 GM/DL (6.4-8.2)
[2021-09-22 15:34] LABS: TOTAL 25(OH) VITAMIN D 53.3 NG/ML (30.0-100.0); VITAMIN B12 LEVEL 709 PG/ML
[2021-09-22 15:35] LABS: FOLATE 8.5 NG/ML
== END ==
LOC: M LAB 13:39
PROVIDERS: ATTEND Physician Assistant Surgical
DX: K91.2 Postsurgical malabsorption, not elsewhere classified (principal); Z98.84 Bariatric surgery status; E55.9 Vitamin D deficiency, unspecified; Z86.39 Personal history of other endocrine, nutritional and metabolic disease

== ENCOUNTER → 2022-01-18 | Outpatient (REF) | payer BC | LOC: M LAB REF 17:07 | PROVIDERS: ATTEND Physician Assistant | DX: N20.0 Calculus of kidney (principal); N39.0 Urinary tract infection, site not specified ==

== ENCOUNTER → 2022-02-16 | Outpatient (CLI) | payer BC | LOC: M LAB 11:59 | PROVIDERS: ATTEND Physician Assistant | DX: N20.0 Calculus of kidney (principal) ==

== ENCOUNTER → 2023-03-21 | Outpatient (CLI) | payer BC | LOC: M PLAIMG 08:22 | PROVIDERS: ATTEND Physician Assistant | DX: N23 Unspecified renal colic (principal); N20.0 Calculus of kidney; K57.30 Diverticulosis of large intestine without perforation or abscess without bleeding ==

== ENCOUNTER → 2024-12-24 | Outpatient (CLI) | payer BC ==
[~2024-12-24] MED LIST changes: +CHIL1CHW3 PO; +CYAN500T14 PO; +MAGN200T PO; +PANT20TA6 PO; +PERCOCET PO; +TIRZ15PE3 SUBQ; +VITA100093 PO
[2024-12-24 11:43] LABS: PLATELET COUNT, AUTOMATED 309 10^3/uL (150-450)
[2024-12-24 12:08] LABS: CALCIUM LEVEL 9.6 MG/DL (8.5-10.1); CARBON DIOXIDE LEVEL 32 MMOL/L (20-31); CHLORIDE LEVEL 103 MMOL/L (98-107); CREATININE FOR GFR 1.02 MG/DL (0.70-1.30); GLOMERULAR FILTRATION RATE > 90.0 (>60); POTASSIUM SERUM 4.6 MMOL/L (3.5-5.1); SODIUM LEVEL 142 MMOL/L (136-145)
== END ==
LOC: M RAD 09:59
PROVIDERS: ATTEND Urology
DX: Z01.818 Encounter for other preprocedural examination (principal); N48.6 Induration penis plastica

== ENCOUNTER 2025-01-05 11:29 | Day surgery (SDC) | payer BC ==
[~2025-01-05] VITALS: Ht 177.8 cm; Wt 81.6 kg
[~2025-01-05 11:29] MED LIST changes: +KETOROLAC 30 MG/ML 1 ML VIAL As Ordered ONE; +LIDOCAINE 2% 100 MG/5 ML SDV (FOR ANES.) As Ordered ONE; +MIDAZOLAM INJ 2 MG/2 ML VIAL As Ordered ONE; +ONDANSETRON 4MG/2ML VIAL As Ordered ONE; +dexAMETHasone 4 MG/ML 1 ML VIAL As Ordered ONE
[2025-01-05] MEDS: LR 1,000 ML IV SCH (12:00)
[2025-01-05] MEDS ORDERED: AMOX500C PO (12:08)
[2025-01-05] MEDS ORDERED: [UNRECOGNIZED DRUG - CODE] PO (12:08)
[2025-01-05] MEDS: ceFAZolin SOD 2 GM IV ONCE IV ONE (12:56)
[2025-01-05] MEDS ORDERED: ACETAMINOPHEN 1000MG/100ML IV BAG As Ordered ONE (13:02)
[2025-01-05] MEDS ORDERED: LR 1,000 ML IV SCH (15:10)
[2025-01-05] MEDS: ONDANSETRON 4MG/2ML VIAL IV PRN (16:00)
[2025-01-05] MEDS: HYDROMORPHONE HCL 0.5 MG/0.5 ML SYRINGE IV PRN (16:22)
[2025-01-05 17:00] VITALS: BP 110/58; TEMP 97.5; O2SAT 95
[2025-01-05] MEDS ORDERED: traMADol 50 MG TAB PO PRN (18:40)
== END 2025-01-05 17:55 | disposition home or self-care (01) ==
LOC: M SDC 11:29
PROVIDERS: ATTEND Urology
DX: N48.6 Induration penis plastica (principal); K21.9 Gastro-esophageal reflux disease without esophagitis; Z79.899 Other long term (current) drug therapy; Z98.84 Bariatric surgery status
CPT/HCPCS: 54360; J0131; J0688; J1100; J1171; J1885; J2250; J2405; J2765; J3010